=== PATIENT | female | born 1940 | race Native Hawaiian/Other Pacific Islander ===

== ENCOUNTER 2021-10-02 18:00 | Emergency (ER) | payer OTHER ==
[~2021-10-02] VITALS: Ht 160 cm; Wt 61.2 kg
[2021-10-02 18:00] VITALS: BP 161/83; TEMP 97
[2021-10-02 18:14] LABS: PLATELET COUNT 244 K/uL (152-353)
[2021-10-02 18:15] LABS: POTASSIUM 4.1 mmol/L (3.6-5.2)
[2021-10-03] MEDS ORDERED: FLUOXETINE20 MG PO (13:10)
[2021-10-03] MEDS ORDERED: GALANTAMINE PO (13:16)
[2021-10-03] MEDS ORDERED: EUTHYROX50 MCG PO (13:17)
[2021-10-03] MEDS ORDERED: LORA1TAB17 PO (13:19)
[2021-10-03] MEDS ORDERED: MEMANTINE HYDRO10 MG PO (13:20)
[2021-10-03] MEDS ORDERED: METOPROLOL25 M1 PO (13:21)
[2021-10-03] MEDS ORDERED: SERT100T PO (13:23)
[2021-10-03] MEDS ORDERED: QUETIAPINE50 MG PO (13:24)
== END 2021-10-02 19:29 | disposition still patient (30) ==
LOC: ED 18:00
PROVIDERS: Emergency Medicine
DX: G30.8 Other Alzheimer's disease (principal); F02.81 Dementia in other diseases classified elsewhere, unspecified severity, with behavioral disturbance; R45.1 Restlessness and agitation; U07.1 COVID-19; Z04.6 Encounter for general psychiatric examination, requested by authority
CPT/HCPCS: 80053; 80320; 80329; 85027; 87635; 93005; 99283; U0003

== ENCOUNTER 2022-04-25 16:04 | Emergency (ER) | payer OTHER ==
[~2022-04-25] VITALS: Ht 157.5 cm; Wt 59.9 kg
[2022-04-25 16:04] VITALS: BP 162/49; TEMP 98.9
[~2022-04-25 16:04] MED LIST: ESCI10TA PO; EUTHYROX50 MCG PO; FLUOXETINE20 MG PO; GALANTAMINE PO; LORA1TAB17 PO; MELATONIN MAXIMU5 MG PO; MEMA10TA2 PO; MEMANTINE HYDRO10 MG PO; METOPROLOL25 M1 PO; QUET100T2 PO; QUET25TA2 PO; QUETIAPINE50 MG PO; SERT100T PO
[2022-04-25 16:13] LABS: PLATELET COUNT 229 K/uL (152-353)
[2022-04-25 16:18] LABS: POTASSIUM 4.1 mmol/L (3.6-5.2)
[2022-04-25] MEDS ORDERED: METOPROLOL25 M1 PO (17:32)
[2022-04-25] MEDS ORDERED: QUETIAPINE50 MG PO (17:33)
[2022-04-25] MEDS ORDERED: EUTHYROX50 MCG PO (17:34)
[2022-04-25] MEDS ORDERED: LIPITOR40 MG PO (17:35)
[2022-04-25] MEDS ORDERED: PEPCID40 MG PO (17:35)
[2022-04-25] MEDS ORDERED: REMERON SOLTAB15 MG PO (17:36)
[2022-04-25] MEDS ORDERED: RAZADYNE ER8 MG PO (17:36)
[2022-04-25] MEDS ORDERED: CEPH250C22 PO (17:39)
[2022-04-25] MEDS ORDERED: NITR100C56 PO (17:40)
[2022-04-25] MEDS ORDERED: CEPH500C20 PO (17:40)
[2022-04-25] MEDS ORDERED: NITR0.4S2 SL (17:45)
== END 2022-04-25 16:48 | disposition still patient (30) ==
LOC: ED 16:04
PROVIDERS: Emergency Medicine Emergency Medical Services
DX: G30.8 Other Alzheimer's disease (principal); F02.81 Dementia in other diseases classified elsewhere, unspecified severity, with behavioral disturbance; Z11.52 Encounter for screening for COVID-19; Z04.6 Encounter for general psychiatric examination, requested by authority
CPT/HCPCS: 80053; 85027; 87635; 93005; 99283; U0003

== ENCOUNTER 2023-03-29 14:12 | Emergency (ER) | payer OTHER ==
[~2023-03-29] VITALS: Ht 157.5 cm; Wt 56.2 kg
[2023-03-29 14:12] VITALS: BP 148/59; TEMP 97.8
[~2023-03-29 14:12] MED LIST changes: +ACET-206 PO; +ATOR20TA2 PO; +CEPH250C22 PO; +CEPH500C20 PO; +DIPH25CA90 PO; +FAMOTIDINE20 MG PO; +LEVO0.0529 PO; +LEVOFLOXACIN500 MG PO; +LIPITOR40 MG PO; +METO50TA63 PO; +NITR0.4S2 SL; +NITR100C56 PO; +PEPCID40 MG PO; +RAZADYNE ER8 MG PO; +REMERON 15MG TAB PO; +REMERON SOLTAB15 MG PO
[2023-03-29 14:56] LABS: PLATELET COUNT 209 K/uL (152-353)
[2023-03-29 15:04] LABS: POTASSIUM 4.4 mmol/L (3.6-5.2)
[2023-03-29] MEDS ORDERED: MEMANTINE PO (17:30)
[2023-03-29] MEDS ORDERED: REXULTI0.25 MG PO (17:30)
[2023-03-29] MEDS ORDERED: ESCI10TA PO (17:31)
[2023-03-29] MEDS ORDERED: QUET100T2 PO (17:31)
[2023-03-29] MEDS ORDERED: QUET25TA2 PO (17:32)
[2023-03-29] MEDS ORDERED: ADULT ASPIRIN R81 MG PO (17:33)
[2023-04-05] MEDS ORDERED: ENTERIC COATED325 MG PO (11:04)
[2023-04-05] MEDS ORDERED: Atorvastatin Calcium PO (11:04)
[2023-04-05] MEDS ORDERED: ESCI10TA PO (11:05)
[2023-04-05] MEDS ORDERED: MEGE40TA32 PO (11:06)
[2023-04-05] MEDS ORDERED: MEMA5TAB PO (11:06)
[2023-04-05] MEDS ORDERED: LEVO0.0529 PO (11:06)
[2023-04-05] MEDS ORDERED: METO50TA63 PO (11:07)
[2023-04-05] MEDS ORDERED: QUET25TA2 PO (11:07)
== END 2023-03-29 15:45 | disposition still patient (30) ==
LOC: ED 14:12
PROVIDERS: Family Medicine
DX: F03.90 Unspecified dementia, unspecified severity, without behavioral disturbance, psychotic disturbance, mood disturbance, and anxiety (principal); Z02.79 Encounter for issue of other medical certificate
CPT/HCPCS: 80053; 80143; 80179; 80307; 80320; 81002; 85027; 87635; 93005; 99283; U0003